=== PATIENT | female | born 1970 | race Caucasian/White ===

== ENCOUNTER 2021-11-07 05:10 | Day surgery (SDC) | payer OTHER ==
[2021-11-06 14:25] VITALS: BMI 28.3
[2021-11-07 12:21] VITALS: TEMP 98
[2021-11-07 13:25] VITALS: BP 117/80; PULSE 64; RESP 14
== END 2021-11-07 13:19 | disposition home or self-care (01) ==
LOC: JASU-ENDO 05:10
PROVIDERS: ATTEND Internal Medicine Gastroenterology
PROC: 0DJD8ZZ Inspection of Lower Intestinal Tract, Via Natural or Artificial Opening Endoscopic (ICD-10-PCS; principal; 2021-11-07 10:15)
DX: Z12.11 Encounter for screening for malignant neoplasm of colon (principal); K64.8 Other hemorrhoids
CPT/HCPCS: 81025